=== PATIENT | male | born 1995 | race Caucasian/White ===

== ENCOUNTER → 2020-07-14 | Outpatient (REF) ==
[~2020-07-14] MED LIST: AMOX1SUS19 PO; BENA25CA2 PO; IBUP100C PO; RISP0.5T3 PO; RISPERIDAL PO; SULF200S10 PO; TRIA1CR80 TOP; TYLE325T5 PO; [UNRECOGNIZED DRUG - OTHER] PO
== END ==
LOC: M LAB REF 16:35
PROVIDERS: ATTEND Internal Medicine
DX: Z00.00 Encounter for general adult medical examination without abnormal findings (principal)